=== PATIENT | female | born 1985 | race Caucasian/White ===

== ENCOUNTER 2016-12-27 20:44 | Emergency (ER) | payer SELFPAY ==
[~2016-12-27] VITALS: Ht 154.9 cm; Wt 52.0 kg
[2016-12-27 20:46] VITALS: BP 120/65; PULSE 64; RESP 16; TEMP 98.3; O2SAT 98
--- NOTE | 2016-12-27 21:18 | PD ---
Physical Exam Time Seen by Provider: 21:17 Narrative 31yo F c/o broken, painful left bottom tooth today. Denies fever, vomiting. No facial edema noted in triage. Patient seen in triage. VS reviewed. Awaiting bed placement. Data Data Last Documented VS Vital Signs Date Time Temp Pulse Resp B/P Pulse Ox O2 Delivery O2 Flow Rate FiO2 12/27/16 20:46 98.3 64 16 120/65 98 Room Air MDM Supervised Visit with BENJI: Virginia Goodwin Dec 27, 2016 21:18
== END 2016-12-28 07:44 | disposition left against medical advice (07) ==
LOC: NED 20:44
DX: S02.5XXA Fracture of tooth (traumatic), initial encounter for closed fracture (principal); X58.XXXA Exposure to other specified factors, initial encounter; Z53.21 Procedure and treatment not carried out due to patient leaving prior to being seen by health care provider
CPT/HCPCS: 99281